=== PATIENT | male | born 1965 | race Caucasian/White ===

== ENCOUNTER 2018-06-27 23:14 | Emergency (ER) | payer OTHER ==
[~2018-06-27] VITALS: Ht 172.7 cm; Wt 81.7 kg
[2018-06-28] MEDS ORDERED: IBUP800 PO (00:26)
[2018-06-28] MEDS ORDERED: Robaxin-750750 MG PO (00:26)
[2018-06-28] MEDS ORDERED: Acetaminophen-1 EAC1 PO (00:26)
== END 2018-06-28 00:38 | disposition home or self-care (01) ==
LOC: ER 23:14
DX: M54.12 Radiculopathy, cervical region (principal); Z88.0 Allergy status to penicillin
CPT/HCPCS: 72040; 99283-25